=== PATIENT | male | born 1955 | race Caucasian/White ===

== ENCOUNTER 2023-11-03 05:55 | Day surgery (SDC) | payer OTHER ==
[2023-11-03] VITALS (12 sets, daily range): BP systolic 142–172; BP diastolic 65–74; PULSE 72–82; RESP 15–18
[~2023-11-03] VITALS: Ht 177.8 cm; Wt 72.6 kg
[~2023-11-03 05:55] MED LIST: AMLO-258 PO; CALC500T13 PO; DOXA2TAB2 PO; ERGO500093 PO; FERS325 PO; HYDR100T27 PO; LORA-192 PO; SODI650T PO
[2023-11-03] MEDS ORDERED: 0.9%NACL 1000ML 1,000 ML IV ONE (06:14)
[2023-11-03] MEDS ORDERED: PROPOFOL 10 MG/ML 20ML VIAL IV ONE ×2 (07:08→07:54)
[2023-11-03] MEDS ORDERED: LIDOCAINE HCL 1% 20 ML VIAL ONE (07:08)
== END 2023-11-03 09:20 | disposition home or self-care (01) ==
LOC: DAH 05:55 → ENDO 05:55
PROVIDERS: ATTEND Internal Medicine
DX: D50.0 Iron deficiency anemia secondary to blood loss (chronic) (principal); D12.3 Benign neoplasm of transverse colon; D12.2 Benign neoplasm of ascending colon; D12.0 Benign neoplasm of cecum; D13.2 Benign neoplasm of duodenum; K64.1 Second degree hemorrhoids; K57.30 Diverticulosis of large intestine without perforation or abscess without bleeding; K31.89 Other diseases of stomach and duodenum; K22.2 Esophageal obstruction; K44.9 Diaphragmatic hernia without obstruction or gangrene; K29.50 Unspecified chronic gastritis without bleeding; I12.0 Hypertensive chronic kidney disease with stage 5 chronic kidney disease or end stage renal disease; N18.6 End stage renal disease; F17.200 Nicotine dependence, unspecified, uncomplicated; Z79.899 Other long term (current) drug therapy; Z98.890 Other specified postprocedural states; Z90.89 Acquired absence of other organs
CPT/HCPCS: 43239; 45385; J7030 ×3; J2704 ×2; A4620 ×2; A4215 ×4; A4223 ×2; A7002 ×2; A4222 ×2; A4221; A4663 ×2; A4606 ×2; J3490